=== PATIENT | female | born 1955 | race Caucasian/White ===

== ENCOUNTER 2021-01-31 14:59 | Outpatient (REF) | payer MEDICARE, MEDICAID, SELFPAY ==
--- NOTE | ~2021-01-31 | MM_ITS ---
EXAMINATION: BONE DENSITOMETRY CLINICAL INDICATION: Encounter for screening for osteoporosis. Menopausal and female climacteric states. COMPARISON: This is the patient's baseline examination. TECHNIQUE: Using a [employer] DXA System (software version: 13.1) manufactured by [employer], dual-energy x-ray absorptiometry was performed of the lumbar spine and left hip. The images are of good technical quality. Summary results are attached. FINDINGS: AP SPINE L1-L4 (excluding L3): The data of L1-L4 has been changed to exclude the L3 vertebral body, because degenerative sclerosis at this level may cause overestimation of lumbar spine density. BMD 0.907 g/cm2, Z-score -0.7, T-score -2.2, osteopenia. LEFT FEMUR, NECK: BMD 0.717 g/cm2, Z-score -0.9, T-score -2.3, osteopenia. LEFT FEMUR, TOTAL: BMD 0.857 g/cm2, Z-score 0.0, T-score -1.2, osteopenia. IDENTIFIED RISK FACTORS: Height loss. Low calcium intake. Menopause. HISTORY OF FRACTURE: None listed. MEDICATIONS: Vitamin D. MM/XR DEXA axial skeleton IMPRESSION: 1. DIAGNOSIS: Osteopenia based on the lowest T-score value of -2.3 in the femoral neck applying World Health Organization criteria. 2. 10-YEAR FRACTURE RISK PREDICTION, FRAX: Major osteoporotic fracture (clinical spine, forearm, hip or shoulder) 6.9%. Hip fracture 1.3%. 3. Treatment Recommendations: NOF guidelines recommend consideration for treatment in postmenopausal women and men age 50 and older presenting with the following: -A hip or vertebral (clinical or morphometric) fracture. -T-score less than or equal to -2.5 at the femoral neck or spine after appropriate evaluation to exclude secondary causes. -Low bone mass at the hip or spine and a 10-year fracture probability by FRAX of greater than or equal to 3% for hip fracture or greater than or equal to 20% for major osteoporotic fracture based on the [place] adapted WHO algorithm. 4. Other Recommendations: All treatment decisions require clinical judgment and consideration of individual patient factors, including patient preferences, comorbidities, previous drug use, risk factors not captured in the FRAX model (e.g. frailty, falls, vitamin D deficiency, increased bone turnover, interval significant decline in bone density) and possible under or overestimation of fracture risk by FRAX. Additional medical evaluation for secondary cause of low bone mineral density may be appropriate. FUTURE SCAN RECOMMENDATION: People with diagnosed cases of osteoporosis or at high risk for fracture should have regular bone mineral density tests. For patients eligible for Medicare, routine testing is allowed once every 2 years. The testing frequency can be increased to one year for patients who have rapidly progressing disease, those who are receiving or discontinuing medical therapy to restore bone mass, or have additional risk factors.
== END 2021-01-31 15:00 | disposition home or self-care (01) ==
LOC: HO.MAMMO 14:59
PROVIDERS: Visit Provider Registered Nurse Community Health
DX: Z13.820 Encounter for screening for osteoporosis (principal); Z78.0 Asymptomatic menopausal state; E55.9 Vitamin D deficiency, unspecified
CPT/HCPCS: 77080

== ENCOUNTER 2021-06-29 11:18 | Emergency (ER) | payer MEDICARE, MEDICAID, SELFPAY ==
--- NOTE | ~2021-06-29 | XR_ITS ---
EXAMINATION: 1. RADIOGRAPHS THORACIC SPINE 2. RADIOGRAPHS LUMBAR SPINE 3. RADIOGRAPHS LEFT SHOULDER 4. RADIOGRAPHS LEFT FOOT CLINICAL INFORMATION: Diffuse pain. COMPARISON: Scoliotic radiographs February 23, 2018 TECHNIQUE: 3 views of the thoracic spine, 3 views of the lumbar spine, 3 views of the left shoulder and 3 views of the left foot were obtained. FINDINGS: Thoracic/lumbar spine: Again noted is mild levoscoliosis of the upper thoracic spine centered at T4. There is compensatory dextroscoliosis centered at T12. Thoracic and lumbar vertebral body heights are well-maintained. There is mild diffuse narrowing of several thoracic vertebral body heights within the mid thoracic spine. Lumbar vertebral body heights are relatively well-maintained diffusely. Scattered mild to moderate anterior osteophytes are noted throughout the thoracic spine. There are mild degenerative changes of the posterior elements of the lower lumbar spine. Visualized lung parenchyma is well aerated. Pelvic calcifications are likely vascular in nature. Left shoulder: Visualized portion of the proximal left humerus demonstrate no fracture. Humeral head demonstrates good articulation with the glenoid fossa. There are mild hypertrophic changes of the left acromioclavicular joint. Left foot: Bones of the midfoot are well aligned. No tarsal, metatarsal or phalangeal fracture. No significant degenerative changes of the left foot. Small plantar calcaneal enthesophytes. No gross ankle joint effusion. XR/XR foot LT min 3V IMPRESSION: 1. Scoliotic and mild diffuse degenerative changes of the thoracolumbar spine. No compression deformity. 2. No fracture or dislocation of the left shoulder. 3. No fracture or gross abnormality of the left foot.
--- NOTE | ~2021-06-29 | XR_ITS ---
EXAMINATION: 1. RADIOGRAPHS THORACIC SPINE 2. RADIOGRAPHS LUMBAR SPINE 3. RADIOGRAPHS LEFT SHOULDER 4. RADIOGRAPHS LEFT FOOT CLINICAL INFORMATION: Diffuse pain. COMPARISON: Scoliotic radiographs February 23, 2018 TECHNIQUE: 3 views of the thoracic spine, 3 views of the lumbar spine, 3 views of the left shoulder and 3 views of the left foot were obtained. FINDINGS: Thoracic/lumbar spine: Again noted is mild levoscoliosis of the upper thoracic spine centered at T4. There is compensatory dextroscoliosis centered at T12. Thoracic and lumbar vertebral body heights are well-maintained. There is mild diffuse narrowing of several thoracic vertebral body heights within the mid thoracic spine. Lumbar vertebral body heights are relatively well-maintained diffusely. Scattered mild to moderate anterior osteophytes are noted throughout the thoracic spine. There are mild degenerative changes of the posterior elements of the lower lumbar spine. Visualized lung parenchyma is well aerated. Pelvic calcifications are likely vascular in nature. Left shoulder: Visualized portion of the proximal left humerus demonstrate no fracture. Humeral head demonstrates good articulation with the glenoid fossa. There are mild hypertrophic changes of the left acromioclavicular joint. Left foot: Bones of the midfoot are well aligned. No tarsal, metatarsal or phalangeal fracture. No significant degenerative changes of the left foot. Small plantar calcaneal enthesophytes. No gross ankle joint effusion. XR/XR shoulder LT min 2V IMPRESSION: 1. Scoliotic and mild diffuse degenerative changes of the thoracolumbar spine. No compression deformity. 2. No fracture or dislocation of the left shoulder. 3. No fracture or gross abnormality of the left foot.
--- NOTE | ~2021-06-29 | XR_ITS ---
EXAMINATION: 1. RADIOGRAPHS THORACIC SPINE 2. RADIOGRAPHS LUMBAR SPINE 3. RADIOGRAPHS LEFT SHOULDER 4. RADIOGRAPHS LEFT FOOT CLINICAL INFORMATION: Diffuse pain. COMPARISON: Scoliotic radiographs February 23, 2018 TECHNIQUE: 3 views of the thoracic spine, 3 views of the lumbar spine, 3 views of the left shoulder and 3 views of the left foot were obtained. FINDINGS: Thoracic/lumbar spine: Again noted is mild levoscoliosis of the upper thoracic spine centered at T4. There is compensatory dextroscoliosis centered at T12. Thoracic and lumbar vertebral body heights are well-maintained. There is mild diffuse narrowing of several thoracic vertebral body heights within the mid thoracic spine. Lumbar vertebral body heights are relatively well-maintained diffusely. Scattered mild to moderate anterior osteophytes are noted throughout the thoracic spine. There are mild degenerative changes of the posterior elements of the lower lumbar spine. Visualized lung parenchyma is well aerated. Pelvic calcifications are likely vascular in nature. Left shoulder: Visualized portion of the proximal left humerus demonstrate no fracture. Humeral head demonstrates good articulation with the glenoid fossa. There are mild hypertrophic changes of the left acromioclavicular joint. Left foot: Bones of the midfoot are well aligned. No tarsal, metatarsal or phalangeal fracture. No significant degenerative changes of the left foot. Small plantar calcaneal enthesophytes. No gross ankle joint effusion. XR/XR lumbar spine 2-3V IMPRESSION: 1. Scoliotic and mild diffuse degenerative changes of the thoracolumbar spine. No compression deformity. 2. No fracture or dislocation of the left shoulder. 3. No fracture or gross abnormality of the left foot.
--- NOTE | ~2021-06-29 | XR_ITS ---
EXAMINATION: 1. RADIOGRAPHS THORACIC SPINE 2. RADIOGRAPHS LUMBAR SPINE 3. RADIOGRAPHS LEFT SHOULDER 4. RADIOGRAPHS LEFT FOOT CLINICAL INFORMATION: Diffuse pain. COMPARISON: Scoliotic radiographs February 23, 2018 TECHNIQUE: 3 views of the thoracic spine, 3 views of the lumbar spine, 3 views of the left shoulder and 3 views of the left foot were obtained. FINDINGS: Thoracic/lumbar spine: Again noted is mild levoscoliosis of the upper thoracic spine centered at T4. There is compensatory dextroscoliosis centered at T12. Thoracic and lumbar vertebral body heights are well-maintained. There is mild diffuse narrowing of several thoracic vertebral body heights within the mid thoracic spine. Lumbar vertebral body heights are relatively well-maintained diffusely. Scattered mild to moderate anterior osteophytes are noted throughout the thoracic spine. There are mild degenerative changes of the posterior elements of the lower lumbar spine. Visualized lung parenchyma is well aerated. Pelvic calcifications are likely vascular in nature. Left shoulder: Visualized portion of the proximal left humerus demonstrate no fracture. Humeral head demonstrates good articulation with the glenoid fossa. There are mild hypertrophic changes of the left acromioclavicular joint. Left foot: Bones of the midfoot are well aligned. No tarsal, metatarsal or phalangeal fracture. No significant degenerative changes of the left foot. Small plantar calcaneal enthesophytes. No gross ankle joint effusion. XR/XR thoracic spine 2V IMPRESSION: 1. Scoliotic and mild diffuse degenerative changes of the thoracolumbar spine. No compression deformity. 2. No fracture or dislocation of the left shoulder. 3. No fracture or gross abnormality of the left foot.
[2021-06-29 11:26] VITALS: BP 115/62; PULSE 76; RESP 15; TEMP 36.8; O2SAT 100; BMI 30.8
--- NOTE | 2021-06-29 11:56 | ED_ITS ---
HPI - General Adult General Chief complaint: General Medical Stated complaint: flank pain Time Seen by Provider: 06/29/21 11:56 Source: patient Mode of arrival: ambulatory Limitations: language barrier History of Present Illness HPI narrative: 65-year-old female who is on no daily medications presents for 1 month of left back pain. Patient reports the pain goes up into her left shoulder and her left foot hurts when she turned her ankle laterally. States most of the pain is in her back on the left side. States back pain is worse with movement. No recent trauma, patient works standing at a machine all day. No dysuria, no hematuria. Patient was given 2 weeks of Flexeril a month ago which she states did not help with her back pain. Patient has no fevers, no chest pain, no shortness of breath, no numbness or tingling, no leg weakness. She has had no saddle paresthesias, she is not incontinent of bowel or bladder. Not an IV drug user, no personal history of cancer. Related Data Previous Rx's Medication Instructions Recorded ketorolac 10 mg tablet 10 mg PO TID 5 Days #15 tab 06/29/21 methocarbamol 750 mg tablet 750 mg PO Q8H 3 Days #9 tab 06/29/21 Allergies Allergy/AdvReac Type Severity Reaction Status Date / Time No Known Allergies Allergy Unverified 07/19/20 15:52 Review of Systems Constitutional: Constitutional: Denies chills, Denies fatigue, Denies fever(s), Denies headache(s), Denies malaise and Denies weakness Eyes: Eyes: Denies diplopia ENT: Denies otalgia, Denies headache(s), Denies neck pain, Denies post nasal drip, Denies sinus pain and Denies sore throat Cardiovascular: Cardiovascular: Denies chest pain, Denies syncope, Denies leg edema, Denies lightheadedness, Denies Loss of Consciousness, Denies palpitations and Denies dyspnea Respiratory: Respiratory: Denies chest congestion, Denies cough and Denies dyspnea Gastrointestinal: Gastrointestinal: Denies abdominal pain, Denies hematochezia, Denies constipation, Denies fecal incontinence, Denies diarrhea and Denies vomiting Genitourinary: Genitourinary: Denies hematuria, Denies urinary frequency, Denies dysuria, Denies pelvic pain, Denies urinary incontinence, Denies urinary hesitancy and Denies vaginal discharge Musculoskeletal: Musculoskeletal: Reports back pain, Reports arthralgias (left shoulder), Denies muscle weakness, Denies neck pain, Denies numbness and Denies tingling Integumentary/Breasts: Skin/Breast: Denies erythema, Denies rash, Denies skin pain and Denies skin swelling Neurologic: Denies confusion, Denies syncope, Denies headache(s), Denies numbness, Denies tingling and Denies weakness Comments: No saddle paresthesia or leg weakness Psychiatric: Psychiatric: Denies anxiety, Denies confusion and Denies depression Endocrine: Endocrine: Denies fatigue and Denies palpitations [facility] Past Medical History Medical History (Updated 06/29/21 @ 15:13 by DAVE Guan) No known health problems Social History Social History Advance Directives: No Advance Directives Information Provided: No Physical Exam Vital Signs: Vital Signs: Last Vital Signs Temp 98.2 F 06/29/21 11:26 Pulse 76 06/29/21 11:26 Resp 15 06/29/21 11:26 BP 115/62 06/29/21 11:26 Pulse Ox 100 06/29/21 11:26 Body Mass Index 30.8 Const: General: no acute distress, alert and awake; No confusion Nutritional Appearance: well nourished Orientation/consciousness: patient oriented x3 and No confusion Limitations: language barrier HENMT: Head: Yes normal to inspection, Yes normocephalic and Yes atraumatic Ears: hearing grossly normal bilaterally, external ears normal, TM's normal bilaterally and EAC's normal General nose exam: Normal external nose present Face and sinus: Yes normal facial exam Throat: Yes posterior oropharynx normal Eyes: Conjunctivae: conjunctivae normal Pupils: Equal, round and reactive pupils present EOM: EOMs intact bilaterally Neck: Neck: Yes full ROM, Yes no lymphadenopathy and Yes supple Resp: Effort & Inspection: normal respiratory effort and able to speak in complete sentences Auscultation: clear to auscultation bilaterally, no crackles, no rales, no rhonchi and no wheezes Cardio: Rate: regular rate Rhythm: regular rhythm Heart sounds: S1 normal heart sound present and S2 normal heart sound present GI: Inspection: Yes normal to inspection Palpation (GI): Soft to palpation, nontender, no guarding and not rigid Percussion: Yes normal to percussion Auscultation: normal bowel sounds : General: Yes no CVA tenderness Back/Spine/Pelvis: Back: no CVA tenderness Cervical Spine: normal cervical lordosis, No Cervical spine tenderness and No step off deformity Thoracic/Lumbar Spine: pain with thoraco-lumbar ROM, No paraspinal muscle tenderness, thoraco-lumbar ROM limited, No thoraco-lumbar spasm, No thoracic spinal tenderness and No lumbar spinal tenderness Skin: General skin exam: no rashes or lesions noted Neuro: General: patient oriented x3 and No confusion Cranial nerves: Yes Equal, round and reactive pupils present Extrem: General: Yes normal to inspection and Yes full ROM Psych: Appearance: grossly normal Affect: normal affect Attitude: cooperative Thought process: Normal thought process present Course Course Course Narrative: 65-year-old female presents for 1 month of left-sided back pain, left shoulder pain, and pain on the lateral side of her left foot when she turns her ankle out. On exam, patient is well-appearing with stable vitals. Patient has full strength in her lower extremities, intact sensation and pulses in her lower extremities. Patient has reduced range of motion of her spine, and pain especially with twisting left to right. No vertebral point tenderness. Patient has left shoulder anterior tenderness, patient only has 90? range of motion of her left shoulder, scarf sign and empty can sign show patient having Please alte rnate Tylenol and ibuprofen for pain. Take 1 or the other every 4 hours. For example, at midnight take 1000 mg of Tylenol, then at 4:00 a.m. take 800 mg ibuprofen, at 8:00 a.m. take 1000 mg of Tylenol, at noon take 800 mg of ibuprofen, at 4:00 p.m. take 1000 mg of Tylenol, at 8:00 p.m. take 800 mg of ibuprofen. Do not exceed 3000 mg of Tylenol in 24 hours. This method is proven to be as effective as an opioid for pain control.in her left shoulder. Patient is mildly weak to resistance when I push on her left arm with her arms extended. Will get x-ray shoulder x-ray foot, xr spine, gave Toradol and Flexeril. Will get urine, although patient has no CVA tenderness, I do not think that this is a kidney stone. Urine analysis is negative for blood or infection. X-rays of left shoulder show s no fracture or acute osseous abnormality, x-ray of the foot shows no fracture or acute osseous abnormality, x-ray lumbar and thoracic spine shows scoliosis and mild degenerative changes Patient is feeling much better after Toradol and Flexeril, her pain has resolved completely Will refer patient to Orthopedics for left shoulder rotator cuff impingement, will treat muscle pain with Toradol and Flexeril. Consultation to call her primary care provider for follow-up appointment, gave return precautions, such as numbness tingling in her legs, some leg weakness, incontinence of bowel or bladder, or saddle paresthesias Medical Decision Making Lab Data Labs: Lab Results 06/29/21 Range/Units 13:25 Urine Color YELLOW Urine Appearance HAZY Urine pH 7.0 (5.0-8.0) Ur Specific [facility] 1.020 (1.005-1.025) Urine Protein NEG (NEG-TRACE) MG/DL Urine Glucose (UA) NEG (NEG) MG/DL Urine Ketones NEG (NEG) MG/DL Urine Blood NEG (NEG) Urine Nitrite NEG (NEG) Ur Leukocyte Esterase NEG (NEG) Discharge Plan Discharge Clinical Impression: Rotator cuff impingement syndrome of left shoulder Back pain Qualifiers: Back pain location: low back pain Chronicity: acute Back pain laterality: left Sciatica presence: without sciatica Qualified Code(s): M54.5 - Low back pain Patient Disposition: Home, Self-Care Instructions: Rotator Cuff Injury (ED), Acute Low Back Pain (ED) Additional Instructions: Please fill your prescriptions that I have sent to your pharmacy, do not take any ibuprofen containing products while your taking them. No Motrin, Aleve, Excedrin, or anything of with ibuprofen and a. Please call your primary care provider for follow-up appointment. Please call Orthopedics at [phone], I have also referred you to them and they should be calling you for follow-up on your shoulder Please return to the emergency room if you have numbness or weakness in your legs, if you become incontinent of bowel or bladder, if you have tingling in your groin, or for any new or concerning symptoms Surta mirian recetas que le he enviado a desir farmacia, no tome beth?n producto que contenga ibuprofeno mientras los est? tomando. No Motrin, Aleve, Excedrin ni nada con ibuprofeno y a. Llame a desir proveedor de atenci?n primaria para mayte nadira de seguimiento. Llame a Orthopaedics al [phone], tambi?n los he referido y deber?an estar llam?ndolo para un seguimiento de desir hombro. Regrese a la hannah de emergencias si tiene entumecimiento o debilidad en las piernas, si tiene incontinencia intestinal o de vejiga, si tiene hormigueo en la lizeth o si presenta alg?n s?ntoma nuevo o preocupante. Prescriptions: New ketorolac 10 mg tablet 10 mg PO TID 5 Days Qty: 15 RF: 0 methocarbamol 750 mg tablet 750 mg PO Q8H 3 Days Qty: 9 RF: 0 Referrals: Tony Adorno MD [Physician] - 2 days (left RTC impingement) Print Language: British
[2021-06-29] MEDS: Ketorolac Tromethamine 15 MG/ML VIAL IM (13:24)
[2021-06-29] MEDS: Cyclobenzaprine HCl 10 MG TABLET PO (13:25)
[2021-06-29 13:39] LABS: Glucose Urine UA NEG (NEG); Leukocyte Esterase Urine NEG (NEG); Nitrite Urine NEG (NEG); Urine Blood NEG (NEG); Urine Ketones NEG (NEG); Urine Protein NEG (NEG-TRACE)
[2021-06-29 13:41] LABS: Appearance Urine HAZY; Color Urine YELLOW
== END 2021-06-29 15:27 | disposition home or self-care (01) ==
PROVIDERS: Physician Assistant; Emergency Provider Emergency Medicine; PCP Registered Nurse Community Health
DX: M75.42 Impingement syndrome of left shoulder (principal); M54.5 Low back pain
CPT/HCPCS: 72070; 72100; 73030; 73630; 81003; 96372; 99283; J1885

== ENCOUNTER 2023-01-29 16:11 | Outpatient (REF) | payer MEDICARE, OTHER, SELFPAY ==
--- NOTE | ~2023-01-29 | US_ITS ---
EXAMINATION: US VENOUS ULTRASOUND WITH DOPPLER LOWER EXTREMITY, LEFT CLINICAL INFORMATION: Left leg pain. History of DVT. COMPARISON: None TECHNIQUE: Ultrasound of the deep veins is performed from the hip to the calf with compression sonography and color and pulse Doppler assessment. Spectral analysis with color-flow imaging is performed. FINDINGS: There is normal venous compression and respiratory variation and augmented flow. The visualized common femoral vein, superficial femoral vein, profunda femoral vein, popliteal vein, and the trifurcation region shows no evidence of deep venous thrombosis. There is no significant popliteal fossa cyst. No popliteal artery aneurysm. US/US venous duplex LE LT IMPRESSION: No acute DVT demonstrated in the left lower extremity.
== END 2023-01-29 16:12 | disposition home or self-care (01) ==
LOC: HO.US 16:11
PROVIDERS: PCP Registered Nurse; Visit Provider Registered Nurse
DX: I83.813 Varicose veins of bilateral lower extremities with pain (principal); Z86.718 Personal history of other venous thrombosis and embolism
CPT/HCPCS: 93971

== ENCOUNTER 2023-03-17 | Outpatient (REF) | payer MEDICARE, MEDICAID, SELFPAY | END 2023-03-17 00:01 | LOC: CF | PROVIDERS: PCP Registered Nurse; Visit Provider Surgery Vascular Surgery | DX: I83.12 Varicose veins of left lower extremity with inflammation (principal) | CPT/HCPCS: 99202 ==

== ENCOUNTER 2023-04-23 12:51 | Outpatient (REF) | payer MEDICARE, MEDICAID, SELFPAY ==
--- NOTE | ~2023-04-23 | US_ITS ---
EXAMINATION: RIGHT and LEFT LOWER EXTREMITY VENOUS ULTRASOUND (Reflux Exam) CLINICAL INDICATION: leg pain and varicose veins. COMPARISON: None. TECHNIQUE: Color flow triplex imaging and compression Doppler was performed to evaluate both the deep and the superficial systems bilaterally. To evaluate the superficial system, the examination was performed in the upright position. Color-flow Doppler ultrasound and compression ultrasound were utilized. In addition, maneuvers were utilized to demonstrate reflux. FINDINGS: 1. DEEP VENOUS ULTRASOUND OF THE RIGHT LOWER EXTREMITY: Respiratory variation, normal compression and augmented flow are noted in the right common femoral vein, superficial femoral as well as the right popliteal vein and there is no evidence of deep venous thrombosis at these locations. There is deep venous reflux measuring 1.3 seconds in the main superficial femoral vein. There is no evidence of reflux in the deep system in either the common femoral vein or the popliteal vein. There is no evidence of a Major's cyst. 2. SUPERFICIAL ULTRASOUND WITH DOPPLER OF RIGHT LOWER EXTREMITY: The right great saphenous vein at the saphenofemoral junction measures 6 mm, at the mid thigh 3 mm, [id number] 3 mm, [id number] 2 mm, at mid calf 2 mm and at the ankle measures 2 mm. There is reflux in the right greater saphenous vein from above the knee to the ankle measuring maximum 2.5 seconds in the mid calf. There is an accessory lateral greater saphenous vein that measures 3 mm and does not demonstrate reflux. The right small saphenous vein measures 2 mm and shows no reflux. [employer] in the distal thigh measuring 9 mm with 2.8 second reflux. There are varicosities in the knee measuring 3 mm and 3.2 seconds reflux. Varicosity in the distal thigh measuring 3 mm without reflux. 3. DEEP VENOUS ULTRASOUND OF THE LEFT LOWER EXTREMITY: Respiratory variation, normal compression and augmented flow are noted in the left common femoral vein as well as the left popliteal vein and there is no evidence of deep venous thrombosis at these locations. There is no evidence of reflux in the deep system in either the common femoral vein or the popliteal vein. . There is no evidence of a Major's cyst. 4. SUPERFICIAL ULTRASOUND WITH DOPPLER OF LEFT LOWER EXTREMITY: Left great saphenous vein at the saphenofemoral junction measures 6 mm, at the mid thigh 3 mm, [id number] 9 mm, [id number]-[id number] 4 mm, at mid calf 2 mm and at the ankle measures 2 mm. There is left greater saphenous vein reflux from the mid thigh to the ankle. This measures maximum 3.5 second at the mid thigh. There is an accessory medial greater saphenous vein that measures 3 mm and does not demonstrate reflux. The left small saphenous vein measures 2-3 mm and shows no reflux. [employer] in the distal calf measuring 4 mm with 3.1 seconds reflux. Varicosity in the proximal thigh measuring 3 mm without reflux. There are varicosities in the proximal calf measuring 4 mm with 2.8-3.4 s reflux. US/US venous duplex LE BI IMPRESSION: Right: No evidence of DVT. Right superficial femoral vein deep venous reflux measuring 1.4 seconds. Right greater saphenous vein reflux measuring maximum 3.5 seconds at the calf. [employer] in the thigh and varicosity at the knee that demonstrate reflux. Left: No evidence of DVT or deep venous reflux. Left greater saphenous vein reflux measuring maximum 3.5 seconds in the mid thigh. [employer] and varicosities in the calf that demonstrate reflux.
== END 2023-04-23 12:52 | disposition home or self-care (01) ==
LOC: HO.US 12:51
PROVIDERS: PCP Registered Nurse Community Health; Visit Provider Surgery Vascular Surgery
DX: I83.12 Varicose veins of left lower extremity with inflammation (principal)
CPT/HCPCS: 93970

== ENCOUNTER 2023-05-12 14:56 | Outpatient (AMB) | payer MEDICARE, MEDICAID, SELFPAY ==
--- NOTE | 2023-05-12 15:03 | A.OFFVIS_ITS ---
Intake Intake Visit Reasons: follow up s/p 04/23/23 Intake Note: Patient is here for follow up s/p 04/23/23 Pai Gow Manager Required: Yes Pai Gow Manager Name: Melissa Hart CLMimi Allergies No Known Allergies Allergy (Verified 05/12/23 15:10) HPI follow up s/p 04/23/23 HPI Details Pleasant 67-year-old female presents for follow-up regarding venous insufficiency she reports that she does have some swelling she thinks that is out relatively mild but she is concerned about it. 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 She does note swelling at the end of the day when she is doing these procedures. She now presents for follow-up with venous insufficiency testing. FOR[facility]LY [facility] Medical History No known health problems Review of Systems Const Reports as per HPI ENT Reports no additional complaints Card Denies chest pain, Denies chest pain at rest and Denies chest pain with activity Resp Denies chest congestion and Denies cough GI Reports no additional complaints Musc Details: pain over varicosities, aching of lower extremities, swelling, cramping, heaviness and tiredness, itching Denies abnormal gait Skin/Breast Reports pruritus and Denies wounds Neuro Reports no additional complaints and Denies abnormal gait Psych Denies no additional complaints Physical Exam Const General: cooperative, healthy appearing and comfortable Orientation/consciousness: oriented to person, oriented to place and oriented to time Neck Carotids: no bruits Chest Chest palpation & inspection: normal inspection of the chest and normal palpation of entire chest wall Resp Effort & Inspection: normal respiratory effort and able to speak in complete sentences Cardio Rate: regular rate Heart sounds: S1 normal heart sound present and S2 normal heart sound present Peripheral pulses: Peripheral pulses 2+ throughout GI Inspection: Yes normal to inspection Skin Other: +2 edema, CEAP Classification C4 - skin color changes Ep - Etiology Primary As - superficial veins P - reflux General skin exam: dry skin Neuro General: oriented to person, oriented to place and oriented to time Extrem Right lower extremity: full ROM, normal capillary refill and edema Left lower extremity: full ROM, normal capillary refill and edema Psych Mental Status: mental status grossly normal Results Reviewed Results Reviewed: Brief summary of venous insufficiency testing is as follows: right great saphenous vein: Positive right small saphenous vein: negative right accessory vein: none present left great saphenous vein: Positive left small saphenous vein: negative left accessory vein: none present Please note there is no evidence of any venous aneurysms or significant tortuosity Assessment & Plan Assessment & Plan (1) Varicose veins of left lower extremity with inflammation: Code(s): I83.12 - Varicose veins of left lower extremity with inflammation Plan: In short patient is positive for reflux in bilateral lower extremities. She would benefit from venous ablation is. She has politely refused. I did discuss risks benefits complications. She said she would call us should there be any issues in the future. I did discuss routine conservative measures including compression elevation and exercise. Once again she will follow up with us on an as-needed basis if she should decide to go forward with the procedure. Thank you for allowing us to assist in her care. Coding Level of Care Code Est Pt Level 4 (12788) Diagnoses Varicose veins of left lower extremity with inflammation I83.12
== END 2023-05-12 15:23 | disposition home or self-care (01) ==
LOC: HO.HVS 14:56
PROVIDERS: PCP Registered Nurse Community Health; Visit Provider Surgery Vascular Surgery
DX: I83.12 Varicose veins of left lower extremity with inflammation (principal)
CPT/HCPCS: 99214

== ENCOUNTER → 2023-05-12 14:56 | Outpatient (BNVA) | payer MEDICARE, MEDICAID, SELFPAY | PROVIDERS: PCP Registered Nurse Community Health; Visit Provider Surgery Vascular Surgery | DX: I83.12 Varicose veins of left lower extremity with inflammation (principal) | CPT/HCPCS: 99212 ==

== ENCOUNTER 2024-10-15 10:05 | Outpatient (REF) | payer MEDICARE, MEDICAID, SELFPAY ==
[2024-10-15 10:59] LABS: Estimated Average Glucose 114 mg/dL; Hemoglobin A1C 133.5464 umol/L; Hemoglobin A1c % 5.6 % (<6.0); Total Hemoglobin (HGBA1C) 3520.6758 umol/L
[2024-10-15 11:25] LABS: Alanine Aminotransferase 37 U/L (0-31); Albumin Level 4.7 g/dL (3.5-5.0); Alkaline Phosphatase 78 U/L (39-117); Anion Gap 12 (12-20); Aspartate Amino Transferase 24 U/L (5-31); Bilirubin Total 0.7 mg/dL (0.0-1.0); Blood Urea Nitrogen 15 mg/dL (9-16); Carbon Dioxide 27 mmol/L (22-29); Chloride 105 mmol/L (96-108); Cholesterol 212 mg/dL (<200); Estimated Glomerular Filt Rate > 60; Glucose Random 96 mg/dL (60-115); HDL Cholesterol 68 mg/dL (>40); LDL Cholesterol Calculated 132 mg/dL (<100); Potassium 4.1 mmol/L (3.3-5.1); Sodium 140 mmol/L (135-145); Total Protein 7.8 g/dL (6.5-8.0); Triglycerides 60 mg/dL (<150)
[2024-10-15 11:40] LABS: ~Hepatitis C Antibody Nonreactive (Nonreactive)
== END 2024-10-15 10:06 | disposition home or self-care (01) ==
LOC: HO.LAB 10:05
PROVIDERS: PCP Nurse Practitioner Family; Visit Provider Nurse Practitioner Family
DX: Z00.00 Encounter for general adult medical examination without abnormal findings (principal); Z13.1 Encounter for screening for diabetes mellitus; Z13.220 Encounter for screening for lipoid disorders
CPT/HCPCS: 36415; 80053; 80061; 83036; 86803

== ENCOUNTER 2025-09-30 10:17 | Outpatient (REF) | payer MEDICARE, SELFPAY ==
--- OUTSIDE RECORDS SUMMARY | 2025-09-30 10:20 | XMS_ITS | Clinical Summary ---
Author Organization [employer] Address [address] [facility] [address] [place] [address] Care Team Providers Care Communications Engineer Name Role Phone Rosemarie Trista ROSA Primary Care Provider [phone] Allergies Active Allergy Reactions Criticality Noted Date Comments Fluoxetine 03/23/2014 Other reaction(s): Abd pain and difficulty sleeping Medications Blood Pressure Monitor kit 1 each 2 times daily. 1 kit 3 Active hydrOXYzine pamoate (Vistaril) 25 MG capsuleIndicati ons:Anxiety Take 1 capsule (25 mg) by mouth every 6 (six) hours if needed for anxiety for up to 20 days. Do not take more than 4 capsules in a day 80 capsule 4 Active Additional Information Patient not taking.Reason: Other, Reported on 09/04/2025 Active Problems Problem Noted Date Diagnosed Date Hypertension 01/13/2025 Assessment & Plan (02/20/2025 1:37 PM EDT): Pt to measure bp at home Encouraged increased activity Call for bp >140/>90 Dietary counseling 10/22/2024 Assessment & Plan (02/20/2025 1:37 PM EDT): Encouraged daily movement, working up to 30 minutes daily Dietary Recommendations: Fruits, vegetables, whole grains, protein foods, and fat-free or low-fat dairy products are healthy choices. Eat different types of protein foods in your diet. This can include seafood, lean meats, poultry, beans, peas, lentils, nuts, seeds, soy products, and eggs. Limit foods and beverages higher in added sugars, saturated fat, and sodium. Exercise Recommendations: At least 150 minutes of moderate-intensity physical activity per week, or an equivalent combination of moderate- and vigorous-intensity activity Assessment & Plan (10/22/2024 5:15 PM EST): Encouraged minimizing processed foods and increasing whole foods particularly vegetables Encouraged calcium intake Exercise counseling 10/22/2024 Assessment & Plan (10/22/2024 5:15 PM EST): Encouraged daily movement, working up to 30 minutes daily Continue with weight bearing exercise Hyperglycemia 10/11/2024 Assessment & Plan (10/22/2024 5:14 PM EST): Sig improvement with weight loss Lipoma of hand 04/05/2023 Overview (04/05/2023): Excision lipoma Left wrist on 10/03/2016 Health care maintenance 01/29/2023 Overview (01/29/2023): Mammogram: 09/01/2019 - BIRADS 1 Pap: 06/12/2015 - NILM, HPV neg Colonoscopy: Ordered 2018, had GI consult 01/12/2019. No record of results HIV and Hep C: negative 03/14/2017 Assessment & Plan (10/11/2024 1:19 PM EST): Declines vaccines Hx of deep venous thrombosis 01/29/2023 Varicose veins of leg with pain, bilateral 01/29 Overview (05/06/2023): Vascular appt 03/17/23: HHC/ SENIOR INFORMATION SECURITY CONSULTANT referral for VV w/ hx of dvt, patient c/o left leg bulging vein, mauricio LE pain, patient is not diabetic, patient is not a smoker. Patient works on her feet for long hours and has tried compression stalkings but she cant tolerate them. 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 No further f/u known Encounters Date Type Department Care Team Description 09/26/[address] [address] Trista Houston NP Pre-op Exam 09/19/2025 3:15 PM EST Office Visit [address] [address] Trista Houston NP Routine general medical examination at health care facility (Primary Dx); Post-menopausal 09/19/2025 Travel 09/04/2025 1:00 PM EST Office Visit [address] [address] Dilma Moy MD Routine general medical examination at a health care facility (Primary Dx) 09/04/2025 Travel 09/04/[address] [address] Trista Houston NP 09/01/[address] [address] Anastasiia Rodas MA novemeber recalls 08/08/2025 3:30 PM EDT Office Visit [facility] [address] [place] [phone] Jama, Gale, OD 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); Combined forms of age-related cataract of both eyes; Dry eyes; Macular drusen, left; Presbyopia 08/08/2025 Travel 08/08/2025 Patient Outreach [address] [address] Trista Houston NP Medicare Annual Wellness Visit Initial (AWV scheduled) 08/03/2025 Patient Outreach [address] [address] Trista Houston NP Medicare Annual Wellness Visit Initial (AWV unscheduled) from Last 3 Months Immunizations Immunization Administration Dates Next Due Tdap 01/24/2014 Family History Medical History Relation Name Comments Diabetes Father Hypertension Father Diabetes Father's Brother Diabetes Father's Sister Heart disease Mother Relation Name Status Comments Father Father's Brother Father's Sister Mother Social History Tobacco Use Types Packs/Day Years Used Date Smoking Tobacco: Former Cigarettes Passive Smoke Exposure: Past Smokeless Tobacco: Former Tobacco Cessation:Counseling Given: Not Answered Alcohol Use Standard Drinks/Week Comments Never 0 (1 standard drink = 0.6 oz pur e alcohol) Depression Answer Date Recorded Patient Health Questionnaire-9 Score 1 10/11/2024 Patient Health Questionnaire-9 Score 1 10/11/2024 Last PHQ-9: Questionnaire Data Not on file 1 12/12/2023 Housing Stability Answer Date Recorded What is your housing situation today? I have lizzy faye 09/04/[address] you li ve. Do you have problems with any of the following? None of the above 09/04/2025 Food Insecurity Answer Date Recorded Within the past 12 months, y ou worried that your food would run out before you got money to buy more: Never True 09/04/2025 Within the past 12 months,th e food you bought just didn't last and you didn't have enough money to get more: Never True 12/2024 Transportation Answer Date Recorded In the past 12 months, has l ack of transportation kept you from medical appts, meetings, work or from getting things needed for daily living? No 09/04/2025 Utilities Answer Date Recorded In the past 12 months, has t he electric, gas, oil or water company threatened to shut off services in your home? No 09/04/2025 Depression Answer Date Recorded Patient Health Questionnaire-2 Score 0 09/04/2025 Internet Access Answer Date Recorded Internet Access Q1 Yes 09/04/2025 Internet Access Q2 Not on file 09/04/2025 Comments Unknown Sex and Gender Information Value Date Recorded Sex Assigned at Female 09/01/2022 10:15 AM EDT Legal Sex Female 10:15 AM EDT Gender Identity Female 09/01/2022 10:15 AM EDT Sexual Orientation Straight 09/01/2022 10 :15 AM EDT Last Filed Vital Signs Vital Sign Reading Time Taken Comments Blood Pressure 136/74 09/19/2025 3:09 PM EST Pulse 66 09/19/2025 3:09 PM EST Temperature 36.5 C (97.7 F) 09/19/2025 3:09 PM EST Respiratory Rate 16 09/19/2025 3:09 PM EST Oxygen Saturation 98% 09/19/2025 3:09 PM EST Inhaled Oxygen Concentration - - Weight 71.7 kg (158 lb) 09/19/2025 3:09 PM EST Height 154.9 cm (5' 1 ) 09/19/2025 3:09 PM EST Body Mass Index 29.85 09/19/2025 3:09 PM EST Plan of Treatment Health Maintenance Due Date Last Done Comments CT Colonography 1954 FIT DNA/Cologuard 1954 FIT 1954 FOBT 1954 Sigmoidoscopy 1954 Pneumococcal Vaccine: 50+ Years (1 of 1 - PCV) 2004 Zoster Vaccines (1 of 2) 2004 Mammogram 01/31/2023 01/31/2021, 09/02/2019, 2018 DTaP/Tdap/Td Vaccines (2 - T d or Tdap) 01/25/2024 01/24/2014 COVID-19 Vaccine (1 - 2024-2 6 season) 2025 Influenza Vaccine (#1) 2025 Alcohol/Substance Use Screening 09/04/2026 09/04/2025 Depression Screening 09/04/2026 09/04/2025, 10/11/2024 SDOH Screening 09/04/2026 09/04/2025 Tobacco Screening 09/19/2026 09/19/2025 Colonoscopy 02/11/2029 02/11/2019 Colorectal Cancer Screening 02/11/2029 RSV Patients and Patients Aged 60 years or older (1 - 1-dose 75+ series) 2029 Lipid Panel 10/15/2029 10/15/2024, 02/11/2023, 01/04/2021 Hepatitis C Screening Completed 10/15/2024 HIB Vaccines Aged Out No longer eligi ble based on patient's age to complete this topic HPV Vaccines Aged Out No longer eligi ble based on patient's age to complete this topic Hepatitis A Vaccines Aged Out No long er eligible based on patient's age to complete this topic Hepatitis B Vaccines Aged Out No long er eligible based on patient's age to complete this topic IPV Vaccines Aged Out No longer eligi ble based on patient's age to complete this topic Meningococcal B Vaccine Aged Out No l onger eligible based on patient's age to complete this topic Meningococcal Vaccine Aged Out No olayinka breanna eligible based on patient's age to complete this topic RSV under 20 months Aged Out No longe r eligible based on patient's age to complete this topic Rotavirus Vaccines Aged Out No longer eligible based on patient's age to complete this topic Procedures Procedure Name Priority Date/Time Associated Diagnosis Comments HEPATITIS C AB W/REFL TO HCV RNA, QN, PCR Routine 10/15/2024 10:15 AM EST Health care maintenance LIPID PANEL, STANDARD Routine 10/15/2024 10:15 AM EST Health care maintenance MAMMOGRAM GENERIC Routine 01/31/2021 3:0 0 PM EDT HM COLONOSCOPY Routine 02/11/2019 from Last 3 Months or Most Recently Relevant to Health Maintenance Results * Hepatitis C Antibody with Reflex to HCV, RNA, Quantitative, Real-Time PCR (10/15/2024 10:15 AM EST) Hepatitis C Antibody Nonreactive Nonreactive [facility] Comment:Antibodies to HCV no t detected; does not exclude early acuteHCV infection. Blood Venous blood specimen / Unknown 10/15/2024 10:15 AM EST 10/15/2024 10:15 AM EST us Trista Houston NP LAB BLOOD ORDERABLES Final Resul t [facility] [address] [place] [address] [phone] * (ABNORMAL) Lipid Panel, Standard (10/15/2024 10:15 AM EST) Triglycerides 60 <150 mg/dL [facility] Comment:Desirable Triglyceri de: less than 150 mg/dLBorderline High Triglyceride 150-199 mg/dLHigh Triglyceride: 200-499 mg/dLVery High Triglyceride: greater than or equal to 5OO mg/dL Cholesterol 212(H) <200 mg/dL [facility] Comment:Desirable Cholestero l: less than 200 mg/dLBorderline High Cholesterol: 200-239 mg/dLHigh Cholesterol: greater than 239 mg/dL LDL Cholesterol Calculated 132(H) <100 mg/dL [facility] Comment:Desirable LDL: less than 100 mg/dLNear Optimal/Above Optimal LDL: 110- 129 mg/dLBorderline High LDL: 130-159 mg/dLHigh LDL: 160-189 mg/dLVery High LDL: greater than or equal to 190 mg/dL HDL Cholesterol 68 >40 mg/dL [facility] Comment:Desirable HDL: great er than 40 mg/dL Note: This HDL assay may give artificially low results in patients with liver disease. Blood Venous blood specimen / Unknown 10/15/2024 10:15 AM EST 10/15/2024 10:15 AM EST us Trista Houston NP LAB BLOOD ORDERABLES Final Resul t [facility] [address] [place] [address] [phone] * Mammography Report 1 (01/31/2021 3:00 PM EDT) Anatomical Region Laterality Modality Breast Bilateral Mammography 01/31/2021 3:00 PM EDT Narrative 02/04/2021 2:33 PM EDT Refer to the Notes tab for result details [facility] Procedure: Mammography Report 1 Procedure Note ProviderCheyanne MD - 01/24/2023 Refer to the Notes tab for result details [facility] Procedure: Mammography Report 1 us Ritika Will SENIOR INFORMATION SECURITY CONSULTANT IMG BI PROCEDURES Final Result * Hm Colonoscopy (02/11/2019) Colonoscopy Normal Normal Comment:last colonoscopy > 1 0 years ago us Historical Provider HEALTH MAINTENANCE Final Result from Last 3 Months or Most Recently Relevant to Health Maintenance Insurance MEDICARE Care Teams Communications Engineer Relationship Specialty Start Date End Date Trista Houston NP [address] [place] [address] PCP - General Family Medicine 07/14/24
--- OUTSIDE RECORDS SUMMARY | 2025-09-30 10:20 | XMS_ITS | Encounter Summary ---
Author Organization [employer] Address [address] [facility] [address] [place] [address] Care Team Providers Care Hydroelectric Station Operator Chief Name Role Phone Trista Houston NP Primary Care Provider [phone] Reason for Visit * Reason Onset Date Comments Pre-op Exam 09/26/2025 Encounter Details Date Type Department Care Team ([facility] st Contact Info) Description 09/26/2025 Telephone [facility] [address] [place] [address] Trista Houston NP [address] [place] [address] Pre-op Exam Social History Tobacco Use Types Packs/Day Years Used Date Smoking Tobacco: Former Cigarettes Passive Smoke Exposure: Past Smokeless Tobacco: Former Alcohol Use Standard Drinks/Week Comments Never 0 (1 standard drink = 0.6 oz pur e alcohol) Depression Answer Date Recorded Patient Health Questionnaire-9 Score 1 10/11/2024 Patient Health Questionnaire-9 Score 1 10/11/2024 Last PHQ-9: Questionnaire Data Not on file 1 12/12/2023 Housing Stability Answer Date Recorded What is your housing situation today? I have lizzyyolanda faye 09/04/[address] you [...] Orientation Straight 09/01/2022 10 :15 AM EDT documented as of this encounter Miscellaneous Notes * Telephone Encounter - Aaron Hernandez - 09/27/2025 3:27 PM EST TC placed to pt to offer pre-op date and time . Unfortunately given patients work schedule declined. Pt did reports was seen 09/19/25 by ROSA Houston. Pt would like to know if those notes can be used forher to be cleared for surgery? * Telephone Encounter - Desmond Caldwell - 09/26/2025 2:19 PM EST Date of Surgery: 10/12(right eye) 11/09(left eye) Surgical procedure being done: right eye cataract Type of anesthesia: MAC Lab needed: No EKG: No Surgeon's name: Ada Monaco Facility name: [facility] Surgeon's office number: [phone] Surgeon's office fax number: [phone] Contact name (person you spoke with): Lory Last office note from surgeon requested: Yes Send Message to Aaron Hernandez documented in this encounter Plan of Treatment Not on file documented as of this encounter Visit Diagnoses Not on filedocumented in this encounter Additional Health Concerns Assessment Noted Time PHQ-9 Depression Total Score: 1 10/11/20 1:02 PM EST A fall risk assessment has been complete d for the patient 09/04/2025 1:52 PM EST documented as of this encounter Care Teams Hydroelectric Station Operator Chief Relationship Specialty Start Date End Date Trista Houston NP [address] [place] [phone] PCP - General Family Medicine 07/14/24 documented as of this encounter
--- OUTSIDE RECORDS SUMMARY | 2025-09-30 10:20 | XMS_ITS | Encounter Summary ---
Author Organization [employer] Address [address] [facility] [address] [place] [address] Care Team Providers Care Time Signal Wirer Name Role Phone Yazmin Clarke ANP Primary Care Provider [phone] Trista Houston NP Primary Care Provider Reason for Visit * Reason Onset Date Comments Medication Question 07/12/2024 Encounter Details Date Type Department Care Team ([facility] st Contact Info) Description 07/12/[address] [facility] [address] [place], [place] [phone] Yazmin Clarke ANP [address] [place], [place] [phone] Medication Question Social History Tobacco Use Types Packs/Day Years Used Date Smoking Tobacco: Former Cigarettes Smokeless Tobacco: Never Alcohol Use Standard Drinks/Week Comments Never 0 (1 standard drink = 0.6 oz pur e alcohol) Depression Answer Date Recorded Patient Health Questionnaire-9 Score 0 01/29/2023 Housing Stability Answer Date Recorded What is your housing situation today? I have lizzy faye 08/26/[address] you li ve. Do you have problems with any of the following? None of the above 08/26/2023 Food Insecurity Answer Date Recorded Within the past 12 months, y ou worried that your food would run out before you got money to buy more: Never True 08/26/2023 Within the past 12 months,th e food you bought just didn't last and you didn't have enough money to get more: Never True Transportation Answer Date Recorded In the past 12 months, has l ack of transportation kept you from medical appts, meetings, work or from getting things needed for daily living? No 08/26/2023 Utilities Answer Date Recorded In the past 12 months, has t he electric, gas, oil or water company threatened to shut off services in your home? No 08/26/2023 Depression Answer Date Recorded Patient Health Questionnaire-2 Score 0 01/29/2023 Comments Unknown Sex and Gender Information Value Date Recorded Sex Assigned at Female 09/01/2022 10:15 AM EDT Legal Sex Female 10:15 AM EDT Gender Identity Female 09/01/2022 10:15 AM EDT Sexual Orientation Straight 09/01/2022 10 :15 AM EDT documented as of this encounter Functional Status * Over the last 2 weeks, how often have you been bothered by any of the following problems? Question Answer Date of Assessment Author Feeling nervous, anxious, or on edge 3 07/03 1:43 PM EDT Tequila Patel NP Not being able to stop or co ntrol worrying 1 07/14/2024 1:43 PM EDT Tequila Patel N P Worrying too much about diff erent things 3 07/14/2024 1:43 PM EDT Tequila Patel N P Trouble relaxing 1 07/14/2024 1:43 PM EDT Tequila King NP Being so restless that it is hard to sit still 2 07/14/2024 1:43 PM EDT Tequila Patel N P Becoming easily annoyed or irritable 0 07/03 1:43 PM EDT Tequila Patel NP Feeling afraid as if somethi ng awful might happen 2 07/14/2024 1:43 PM EDT Tequila Patel N P ALEXANDER-7 Total Score 12 07/14/2024 1:43 PM EDT Tequila Patel NP documented as of this encounter Miscellaneous Notes * Telephone Encounter - Opal Blankenship - 07/12/2024 1:21 PM EDT Tc from pt requesting medication for anxiety due to attending spouse soon. Please call pt to clarify. documented in this encounter Plan of Treatment Not on file documented as of this encounter Visit Diagnoses Not on filedocumented in this encounter Additional Health Concerns Assessment Noted Time PHQ-9 Depression Total Score: 0 01/30/20 23 2:58 PM EDT documented as of this encounter Care Teams Time Signal Wirer Relationship Specialty Start Date End Date Yazmin Clarke ANP [address] [place] [address] PCP - General Family Medicine 08/12/23 07/13/24 Trista Houston NP [address] [place] [address] PCP - General Family Medicine 07/14/24 documented as of this encounter
[2025-09-30 10:43] LABS: MANUAL DIFF FLAG NO
[2025-09-30 11:35] LABS: Hematocrit 43.3 % (37.0-47.0); Hemoglobin 14.2 g/dl (12.0-16.0); Imm Gran Abs Auto 0.03 X10*3/uL (0.00-0.03); Imm Gran Pct Auto 0.6 % (0.0-0.4); Lymphocytes Absolute Auto 1.5 X10*3/uL (1.2-4.9); Mean Corpuscular HGB Conc 32.8 g/dl (31.0-35.0); Mean Corpuscular Hemoglobin 30.3 pg (27.0-33.0); Mean Corpuscular Volume 92.5 fL (80.0-98.0); NRBC Abs Auto 0.000 X10*3/uL (0.0-0.012); NRBC Pct Auto 0.0 /100WBC (0.0-0.2); Platelet Count 181 X10*3/uL (160-400); Red Blood Count 4.68 X10*6/uL (4.20-5.50); White Blood Count 5.1 X10*3/uL (4.8-10.8)
[2025-09-30 11:52] LABS: Hemoglobin A1C 95.6898 umol/L
[2025-09-30 12:28] LABS: Alanine Aminotransferase 23 U/L (0-31); Albumin Level 4.8 g/dL (3.5-5.0); Alkaline Phosphatase 74 U/L (39-117); Anion Gap 12 (12-20); Aspartate Amino Transferase 22 U/L (5-31); Blood Urea Nitrogen 20 mg/dL (9-16); Calcium 9.9 mg/dL (8.4-10.2); Carbon Dioxide 28 mmol/L (22-29); Chloride 107 mmol/L (96-108); Cholesterol 221 mg/dL (<200); Estimated Glomerular Filt Rate > 60; HDL Cholesterol 68 mg/dL (>40); Potassium 4.8 mmol/L (3.3-5.1); Sodium 142 mmol/L (135-145); Total Protein 7.4 g/dL (6.5-8.0); Triglycerides 59 mg/dL (<150)
== END 2025-09-30 10:18 | disposition home or self-care (01) ==
LOC: HO.LAB 10:17
PROVIDERS: PCP Nurse Practitioner Family; Visit Provider Nurse Practitioner Family
DX: Z00.00 Encounter for general adult medical examination without abnormal findings (principal); Z13.6 Encounter for screening for cardiovascular disorders; Z13.1 Encounter for screening for diabetes mellitus; Z13.29 Encounter for screening for other suspected endocrine disorder
CPT/HCPCS: 36415; 80053; 80061; 83036; 84443; 85025